=== PATIENT | male | born 1990 | race Two or more races ===

== ENCOUNTER 2019-07-09 11:47 | Emergency (ER) | payer MEDICAID, OTHER ==
[~2019-07-09] VITALS: Ht 177.8 cm; Wt 84.0 kg
[2019-07-09] MEDS ORDERED: KETOROLAC 30MG/ML VIAL IV STA (12:46)
[2019-07-09] MEDS ORDERED: LIDOCAINE 5% PATCH TOP STA (12:46)
[2019-07-09 12:57] LABS: BASOPHILS % 0.7 % (0.0-2.0); HEMATOCRIT. 46.2 % (42.0-52.0); HEMOGLOBIN. 15.7 g/dL (14.0-18.0); LYMPHOCYTES % 34.4 % (20.0-50.0); MEAN CORPUSCULAR HEMOGLOBIN 31.2 pg (28.0-32.0); MEAN CORPUSCULAR VOLUME 91.7 fL (80.0-94.0); MEAN PLATELET VOLUME 7.4 fl (7.4-10.4); MONOCYTES % 11.6 % (2.0-8.0); NEUTROPHILS % 48.3 % (40.0-76.0); PLATELET 371 x1000/uL (130-400); RED BLOOD CELL COUNT 5.04 mill/uL (4.7-6.1); RED CELL DISTRIBUTION WIDTH 14.1 % (11.6-14.6)
[2019-07-09 12:58] LABS: CHLORIDE 104 mEq/L (98-107)
[2019-07-09 16:17] VITALS: BP 143/80
== END 2019-07-09 16:18 | disposition home or self-care (01) ==
LOC: ER 11:47
DX: R07.9 Chest pain, unspecified (principal); Z87.891 Personal history of nicotine dependence
CPT/HCPCS: 36415; 71045; 80053; 84484; 85025; 93005; 96374; 99284; 99406; J1885; Z7610